=== PATIENT | male | born 2000 | race Two or more races ===

== ENCOUNTER 2022-09-03 07:36 | Emergency (ER) | payer OTHER ==
[~2022-09-03] VITALS: Ht 175.3 cm; Wt 71.9 kg
[2022-09-03 08:24] VITALS: BP 119/78
[2022-09-03] MEDS ORDERED: TETANUS-DIPTH-ACEL PERTUSSIS 0.5ML SYR Tdap IM ONE (09:00)
[2022-09-03] MEDS ORDERED: CEPH-510 PO (09:16)
[2022-09-03] MEDS ORDERED: ACET500T58 PO (09:16)
== END 2022-09-03 09:25 | disposition home or self-care (01) ==
LOC: ER 07:36
DX: R21 Rash and other nonspecific skin eruption (principal); L08.9 Local infection of the skin and subcutaneous tissue, unspecified
CPT/HCPCS: 90471; 90715